=== PATIENT | female | born 1980 | race Caucasian/White ===

== ENCOUNTER 2018-04-29 03:34 | Emergency (ER) | payer MEDICAID ==
[~2018-04-29] VITALS: Ht 162.6 cm; Wt 56.3 kg
[~2018-04-29 03:34] MED LIST: ABIL10
[2018-04-29 04:07] VITALS: BP 123/79
== END 2018-04-29 04:53 | disposition left against medical advice (07) ==
LOC: ER 04:04
DX: J34.89 Other specified disorders of nose and nasal sinuses (principal); Z53.21 Procedure and treatment not carried out due to patient leaving prior to being seen by health care provider

== ENCOUNTER 2022-02-01 06:34 | Emergency (ER) | payer SELFPAY ==
[~2022-02-01] VITALS: Ht 165.1 cm; Wt 62.0 kg
[~2022-02-01 06:34] MED LIST changes: +ACET-2708 PO; +PYR200 MT; +SULF1TAB48 MT
[2022-02-01] MEDS ORDERED: IBUPROFEN 600MG TABLET PO ONE (09:45)
[2022-02-01] MEDS ORDERED: IBUPROFEN 600MG TABLET PO NR (11:15)
[2022-02-01] MEDS ORDERED: IBUP-2029 MT (14:07)
[2022-02-01 14:35] VITALS: BP 129/81
== END 2022-02-01 14:35 | disposition left against medical advice (07) ==
LOC: ER 06:34
DX: S52.692A Other fracture of lower end of left ulna, initial encounter for closed fracture (principal); Y08.89XA Assault by other specified means, initial encounter; Y93.89 Activity, other specified; Y92.89 Other specified places as the place of occurrence of the external cause; Y99.8 Other external cause status
CPT/HCPCS: 29125; 73090; 81025; 99283